=== PATIENT | male | born 1980 | race Caucasian/White ===

== ENCOUNTER 2016-07-29 12:34 | Emergency (ER) | payer BC, OTHER ==
--- NOTE | 2016-07-29 14:55 | UC ---
Shoulder Pain HPI - HPI Summary HPI Summary: Pt has noticed gradually growing soft lump on R shoulder. Has noticed in recent days that R arm feels like it gets "exhausted" easily, sometimes feels the lump in his armpit. - History of Current Complaint Chief Complaint: UCUpperExtremity Stated Complaint: BUMP ON SHOULDER Time Seen by Provider: 07/29/16 14:32 Hx Obtained From: Patient Onset/Duration: Gradual Onset, Lasting Weeks Timing: Constant Severity Initially: Mild Severity Currently: Mild Character: Dull Aggravating Factor(s): Movement Alleviating Factor(s): Rest Associated Signs And Symptoms: Positive: Swelling Related History: Dominant Hand Right - Allergies/Home Medications Allergies/Adverse Reactions: Allergies Allergy/AdvReac Type Severity Reaction Status Date / Time antibiotics AdvReac See Comment Uncoded 10/01/15 07:43 PMH/Surg Hx/FS Hx/Imm Hx Previously Healthy: Yes Endocrine History Of: Denies: Diabetes, Thyroid Disease Cardiovascular History Of: Denies: Cardiac Disorders, Hypertension, Pacemaker/ICD Respiratory History Of: Denies: COPD, Asthma GI/ History Of: Denies: Ulcer, Renal Disease - Surgical History Surgical History: Yes Surgery Procedure, Year, and Place: Colonoscopies LAST ONE 2004 - Family History Known Family History: Positive: None - Social History Occupation: Employed Full-time Lives: With Family Alcohol Use: Occasionally Substance Use Type: None Smoking Status (MU): Never Smoked Tobacco Review of Systems Constitutional: Negative Skin: Other - lump Eyes: Negative ENT: Negative Respiratory: Negative Cardiovascular: Negative Gastrointestinal: Negative Genitourinary: Negative Motor: Negative Neurovascular: Negative Musculoskeletal: Negative Neurological: Negative Psychological: Negative All Other Systems Reviewed And Are Negative: Yes Physical Exam Triage Information Reviewed: Yes Appearance: Well-Appearing, No Pain Distress, Well-Nourished Vital Signs: Initial Vital Signs Temp 97.3 F 07/29/16 14:26 Pulse 77 07/29/16 14:26 Resp 16 07/29/16 14:26 Pulse Ox 99 07/29/16 14:26 Vital Signs Reviewed: Yes Eye Exam: Normal Eyes: Positive: Conjunctiva Clear ENT Exam: Normal ENT: Positive: Normal ENT inspection, Hearing grossly normal, Pharynx normal, TMs normal Dental Exam: Normal Neck exam: Normal Neck: Positive: Supple, Nontender, No Lymphadenopathy Respiratory Exam: Normal Respiratory: Positive: Chest non-tender, Lungs clear, Normal breath sounds, No respiratory distress, No accessory muscle use Cardiovascular Exam: Normal Cardiovascular: Positive: RRR, No Murmur Musculoskeletal Exam: Normal Musculoskeletal: Positive: Strength Intact, ROM Intact Neurological Exam: Normal Psychological Exam: Normal Skin Exam: Other - Lipoma R shoulder, near rotator cuff insertions Shoulder Course/Dx - Differential Dx/Diagnosis Provider Diagnoses: R shoulder lipoma Discharge - Discharge Plan Condition: Stable Disposition: HOME Patient Education Materials: Lipoma (GEN) Referrals: Niki Oro [Medical Doctor] - Additional Instructions: As we discussed, lipomas are fairly inert and only need to be removed if they become very large or create a cosmetic problem. Since you are feeling some compression symptoms in your R arm, I recommend you see a blockers skiver at the soonest possible appointment to discuss getting the lump removed.
== END 2016-07-29 15:08 | disposition home or self-care (01) ==
LOC: UCEAST 12:34
DX: D17.21 Benign lipomatous neoplasm of skin and subcutaneous tissue of right arm (principal); Z88.1 Allergy status to other antibiotic agents
CPT/HCPCS: 99201; G0463